=== PATIENT | female | born 1975 | race Two or more races ===

== ENCOUNTER 2021-07-14 02:06 | Emergency (ER) | payer OTHER ==
[~2021-07-14] VITALS: Ht 154.9 cm; Wt 81.3 kg
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
[2021-07-14 03:10] VITALS: BP 116/72
[2021-07-14] MEDS ORDERED: IBUPROFEN 600 MG TABLET. PO ONE (03:15)
== END 2021-07-14 03:17 | disposition home or self-care (01) ==
LOC: ER 02:06
DX: S01.21XA Laceration without foreign body of nose, initial encounter (principal); Z88.0 Allergy status to penicillin; W51.XXXA Accidental striking against or bumped into by another person, initial encounter; Y93.89 Activity, other specified; Y92.89 Other specified places as the place of occurrence of the external cause; Y99.8 Other external cause status
CPT/HCPCS: 12011; 99282-25

== ENCOUNTER 2021-12-06 14:12 | Emergency (ER) | payer OTHER ==
[~2021-12-06] VITALS: Ht 154.9 cm; Wt 82.7 kg
[2021-12-06 16:05] VITALS: BP 136/81
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
== END 2021-12-06 17:40 | disposition home or self-care (01) ==
LOC: ER 14:12
DX: R07.89 Other chest pain (principal); M54.2 Cervicalgia; Z88.0 Allergy status to penicillin; V43.53XA Car driver injured in collision with pick-up truck in traffic accident, initial encounter; Y93.I9 Activity, other involving external motion; Y92.89 Other specified places as the place of occurrence of the external cause; Y99.8 Other external cause status
CPT/HCPCS: 70450; 71111; 72125; 99284